=== PATIENT | male | born 1990 | race African-American/Black ===

== ENCOUNTER 2020-06-25 11:52 | Inpatient (IN) ==
[2020-06-25] MEDS ORDERED: DIPHTHERIA/TETANUS ADULT VACCINE 0.5 ML SYRINGE IM ONE (12:01)
[2020-06-25] MEDS ORDERED: LACTATED RINGERS 1,000 ML IV STA (12:01)
[2020-06-25 12:14] LABS: Basophils % 0.4 % (0.0-0.8); Eosinophils % 0.2 % (0.00-10.9); Hematocrit 41.5 VOL% (42.0-52.0); Hemoglobin 13.2 GM/DL (14.0-18.0); Immature Granulocytes % 0.4 %; Immature Granulocytes Absolute 0.03 #; Lymphocytes # 3.4 10*3/uL (1.4-4.0); Mean Corpuscular HGB Conc 31.8 GM/DL (32-36); Mean Platelet Volume 10.7 FL (9.6-12.0); Monocytes % 5.9 % (1.7-12.7); Neutrophils % 52.1 % (38.7-73.9); Platelet Count 171 T/CUMM (130-400); Red Blood Count 4.37 MC/CUMM (3.8-5.5); White Blood Count 8.2 T/CUMM (4-12)
[2020-06-25 12:23] LABS: PT Patient Result 10.9 SECS (9.8-11.9); Partial Thromboplastin Time 27.5 SECS (23.9-33.8)
[2020-06-25 12:41] LABS: Alanine Aminotransferase 36 U/L (16-61); Alkaline Phosphatase 72 U/L (45-117); Amylase 165 U/L (25-115); Aspartate Amino Transferase 31 U/L (0-37); Blood Urea Nitrogen 12 MG/DL (7-18); Calcium 9.2 MG/DL (8.5-10.1); Estimated Glom Filtration Rate 55 ML/MIN; Glucose 122 MG/DL (74-106); Osmolality,Calculated 279.4 MOS/KG (273-304); Total Protein 7.8 G/DL (6.4-8.3)
[2020-06-25] MEDS ORDERED: MEPERIDINE 25 MG/1 ML VIAL IV PRN (13:17)
[2020-06-25] MEDS ORDERED: ONDANSETRON 4 MG/2 ML VIAL IV PRN (13:17)
[2020-06-25] MEDS ORDERED: diphenhydrAMINE 50 MG/1 ML VIAL IV PRN (13:17)
[2020-06-25] MEDS ORDERED: PROMETHAZINE INJ 25 MG in SODIUM CHLORIDE 0.9% 50 ML IV PRN (13:17)
[2020-06-25] MEDS ORDERED: HYDROmorphone 2 MG/1 ML VIAL IV STA (13:35)
[2020-06-25] MEDS ORDERED: ceFAZolin 1,000 MG VIAL ONE (14:49)
[2020-06-25] MEDS ORDERED: propofoL 200 MG/20 ML VIAL IV ONE (16:24)
[2020-06-25] MEDS ORDERED: LIDOCAINE 2% 5 ML VIAL ONE (16:24)
[2020-06-25] MEDS ORDERED: fentaNYL 100 MCG/2 ML VIAL ONE ×2 (16:24)
[2020-06-25] MEDS ORDERED: SEVOFLURANE 1 UNIT/15 MINUTE INH ONE (16:24)
[2020-06-25] MEDS ORDERED: MIDAZOLAM 2 MG/2 ML VIAL ONE (16:24)
[2020-06-25] MEDS ORDERED: DEXAMETHASONE 4 MG/1 ML VIAL ONE (16:25)
[2020-06-25] MEDS ORDERED: ONDANSETRON 4 MG/2 ML VIAL ONE (16:25)
[2020-06-25] MEDS ORDERED: PHENYLEPHRINE 1 MG/10 ML SYRINGE IV ONE (16:26)
[2020-06-25] MEDS ORDERED: ROCURONIUM 100 MG/10 ML VIAL IV ONE (16:26)
[2020-06-25] MEDS ORDERED: ACETAMINOPHEN 1,000 MG/100 ML VIAL IV ONE (16:26)
[2020-06-25] MEDS ORDERED: LACTATED RINGERS 1,000 ML IV ONE (16:26)
[2020-06-25] MEDS ORDERED: SUCCINYLCHOLINE 200 MG/10 ML VIAL ONE (16:26)
[2020-06-25] MEDS ORDERED: MEPERIDINE 25 MG/1 ML VIAL ONE (16:29)
[2020-06-25] MEDS: ceFAZolin 1,000 MG in SYRINGE 1 EACH IV SCH (18:08)
[2020-06-25] MEDS ORDERED: INFLUENZA VIRUS VACCINE 0.5 ML SYRINGE IM ONE (18:14)
[2020-06-26] MEDS: ceFAZolin 1,000 MG in SYRINGE 1 EACH IV SCH ×4 (02:00→20:43)
[2020-06-26 02:36] LABS: Bilirubin,Urine Negative (Negative); Blood, Urine Negative (Negative); Glucose,Urine (UA) Negative (Negative); Ketones,Urine Negative (Negative); Mucus,Urine Occasional /LPF (Occasional); Nitrite,Urine Negative (Negative); Protein,Urine Negative; Urine Appearance CLEAR (Clear); Urine Color Straw (Yellow); Urine Specific Gravity 1.011 (1.001-1.035); Urine Urobilinogen < 2.0 EU/DL (0.2-1.0); WBC,Urine 5 /HPF (0-6)
[2020-06-26 02:38] LABS: Barbiturates Screen,Urine Negative (Negative); Benzodiazepines Screen,Urine Positive (Negative); Cannabinoid Screen,Urine Positive (Negative); Opiate Screen,Urine Negative (Negative); Phencyclidine Screen,Urine Negative (Negative)
[2020-06-27] MEDS: ceFAZolin 1,000 MG in SYRINGE 1 EACH IV SCH ×3 (01:35→14:24)
[2020-06-27 11:33] VITALS: BP 126/73
== END 2020-06-27 15:37 | disposition home or self-care (01) | DRG 494 ==
LOC: EDBD → N.ED 11:52 → N.EDINP 14:08 → N.3E 17:21
PROVIDERS: ADMIT Orthopaedic Surgery; ATTEND Orthopaedic Surgery